=== PATIENT | female | born 1995 | race Caucasian/White ===

== ENCOUNTER 2020-06-26 09:09 | Emergency (ER) | payer MEDICAID, SELFPAY ==
[2020-06-26 09:11] VITALS: BP 132/85; PULSE 90; RESP 16; TEMP 36.4; O2SAT 100; BMI 26.4
--- NOTE | 2020-06-26 09:19 | EX.ED.UPPERE ---
HPI History of Present Illness Chief Complaint: Upper Extremity Injury Informant: patient Onset/Context/Timing Onset: Yesterday Context: Gradual Onset Timing: Waxes and wanes Quality of Pain: Aching and Throbbing Current Severity: Moderate Maximum Severity: Moderate Associated Symptoms Associated Symptoms: Negative for Parasthesia and Weakness Narrative Narrative: Patient presents with left shoulder pain. She states she noted pain yesterday beneath her left scapula. She had difficulty raising her arm. She states she woke this morning with intense pain and had to have her help her dress. She has not taken anything for pain at this point. She denies any known injury but does state that she has 2 small children that she is lifting constantly. She denies paresthesias. She is right-hand dominant. PFSH PFSH no medical history Home Medications cyclobenzaprine 10 mg PO BID PRN #10 tab 06/26/20 [Rx Last Taken Unknown] naproxen [Naprosyn] 500 mg PO BID PRN #20 tab 06/26/20 [Rx Last Taken Unknown] Allergy/AdvReac Type Severity Reaction Status Date / Time No Known Allergies Allergy Verified 06/26/20 09:12 Surgical History History of Social History Smoking Status: Current every day smoker ROS ROS ED Constitutional Constitutional ED: Denies chills or fever(s) Eyes Eyes: Denies change in vision ENT ENT ED: Denies sore throat Cardiovascular Cardiovascular: Denies chest pain Respiratory/Chest Respiratory/Chest: Denies cough or dyspnea Gastrointestinal Gastrointestinal: Denies abdominal pain, diarrhea, nausea or vomiting Genitourinary Genitourinary ED: Denies dysuria Musculoskeletal Musculoskeletal: Reports other Details: Posterior left shoulder pain ; Denies back pain Integumentary Denies rash Neurologic Neurologic: Denies headache(s), paresthesias or weakness Psychiatric Psychiatric: Denies anxiety or depression Endocrine Endocrinology: Denies polydipsia or polyuria Allergic/Immunologic Allergic/Immunologic ED: Denies urticaria EXAM Physical Exam Const Vital Signs: 06/26/20 09:11 Temperature 97.6 F L Temperature Source Temporal Pulse Rate 90 Respiratory Rate 16 Blood Pressure 132/85 H Blood Pressure Mean 100 Pulse Ox 100 Oxygen Delivery Method Room Air Positive well nourished and well developed General Appearance ED: well developed HEENT Reports normocephalic and head/scalp atraumatic Eyes PERRL and EOMs intact bilaterally Neck supple Chest Wall inspection of chest normal and palpation of chest normal Resp normal respiratory effort and clear to auscultation bilaterally Cardio regular rate and regular rhythm GI Palpation: soft Back/Spine no CVA tenderness Extremity normal to inspection Left Upper Extremity: shoulder joint Shoulder Joint Exam - Left: palpation (Tenderness palpation over the left scapula.), ROM (Full range of motion noted, but increased pain when raising arm overhead or placing hand behind her back.) and neurovascular exam (Normal sensation throughout with strong distal pulses) Neuro oriented x3 and no sensory deficits noted Sensorium / Orientation: alert Motor Exam: strength 5/5 throughout Psych mental status grossly normal Skin no rashes or lesions noted Lesions: no lesions Rashes: no rashes MDM MDM MDM Narrative Medical decision making narrative: Patient was given naproxen here for pain. Left shoulder x-rays are obtained and unremarkable per my interpretation. Radiologist interpretation is also reviewed. Treatment and Re-Evaluation Comments:: On repeat evaluation patient is resting comfortably. She be given prescriptions for naproxen as well as Flexeril. She will be referred to Chris Ramirez, on-call for orthopedics if not improving. Discharge Plan Triage Chief Complaint: Upper Extremity Injury ED Provider: Aida Shelton Dx/Rx/DC Orders Clinical Impression: Sprain of left shoulder Instructions: ED Shoulder Sprain Prescriptions: New naproxen [Naprosyn] 500 mg tablet 500 mg PO BID PRN (Reason: pain) Qty: 20 RF: 0 cyclobenzaprine 10 mg tablet 10 mg PO BID PRN (Reason: muscle spasm) Qty: 10 RF: 0 Primary Care Provider: Care Physician,No Primary Referrals: Chris Ramirez MD [STAFF PHYSICIAN] - 1 Week if not improving Care Physician,No Primary [Primary Care Provider] - Disposition Disposition: Home, self care
[2020-06-26] MEDS: Naproxen 500 MG Tablet PO (09:25)
--- NOTE | 2020-06-26 09:28 | RAD_ITS ---
STUDY: X-RAY - LEFT SHOULDER REASON FOR EXAM: Female, 24 years old. Pain TECHNIQUE: 4 view(s) of the shoulder. COMPARISON: None. FINDINGS: Normal glenohumeral articulation. Normal acromioclavicular joint. Normal acromion. Normal humeral head and visualized proximal humerus. The soft tissue structures are unremarkable. Normal visualized pulmonary apex. RAD/Shoulder min 2 Views IMPRESSION: Normal x-ray examination of the shoulder. Electronically Signed: Luis London MD at 9:54 EDT , Service support ,
[2020-06-26 10:17] VITALS: RESP 16
== END 2020-06-26 10:18 | disposition home or self-care (01) ==
PROVIDERS: Emergency Provider Emergency Medicine
DX: S43.402A Unspecified sprain of left shoulder joint, initial encounter (principal); X58.XXXA Exposure to other specified factors, initial encounter; Y93.9 Activity, unspecified; Y92.9 Unspecified place or not applicable; Y99.9 Unspecified external cause status; F17.200 Nicotine dependence, unspecified, uncomplicated; Z79.1 Long term (current) use of non-steroidal anti-inflammatories (NSAID)
CPT/HCPCS: 73030; 99282